=== PATIENT | female | born 1940 | race Caucasian/White ===

== ENCOUNTER 2021-12-19 16:59 | Emergency (ER) | payer MEDICARE, BC ==
[~2021-12-19 16:59] MED LIST: ASPIR 8181 MG PO; NORCO 7.5-3251 EACH PO
== END 2021-12-19 17:06 | disposition left against medical advice (07) ==
LOC: ER1 16:59
DX: Z53.21 Procedure and treatment not carried out due to patient leaving prior to being seen by health care provider (principal)